=== PATIENT | female | born 1985 | race Caucasian/White ===

== ENCOUNTER 2025-06-18 13:40 | Outpatient (CLI) | payer MEDICAID, SELFPAY ==
[2025-06-18 13:54] VITALS: BP 110/81; PULSE 90; RESP 18; TEMP 36.7; O2SAT 99
[2025-06-18 14:21] VITALS: PULSE 75; O2SAT 100
--- NOTE | 2025-06-18 14:30 | PDOC.PAIN_ITS ---
Date of service: 06/18/25 Time of Service: 14:36 Pain Managment Procedure Note Procedure Note Procedure Note: Ultrasound guidedTrigger Point Injection ? Location: Bilateral thoracic parspinous ? Pre-procedure Diagnosis:? M79.10- Myalgia, unspecified site ? Post-procedure Diagnosis:? The same as above ? Sedation: none? Estimated blood loss: < 1 ml ? Surgeon:? Michele Cantrell MD ? Procedure Detail:?? The procedure and potential risks were explained to the patient and informed written consent was obtained. Time out was performed in procedure room with nursing staff confirming the patient's identity, procedure to be performed, allergies, and any blood thinning or anti-platelet medications. Sterile gloves were used, a face mask was worn, and new single dose vials of all medications were used with the top being swabbed with alcohol and given time to dry prior to withdrawal of medication.? Trigger points were palpated and confirmed to reproduce the patient?s pain symptoms.? Pre-injection ultrasound scanning of the area of interest was performed using Linear transducer, identifying relevant anatomy, landmarks, and neurovascular structures allowing for optimal needle path. The site was then prepared in the usual sterile fashion, using thorough Chlorhexadine preparation of the skin and sterile draping. The same ultrasound transducer was then passed into the sterile field using sterile probe cover and sterile ultrasound gel. Using high-frequency ultrasound probe with sterile cover target was identified.? ? A 25-gauge 1.5 inch needle was advanced to the target.? following negative aspiration a total of 8 ml from a mixture of 0.5% bupivacaine and 30 mg Depo- Medrol was injected.? Bilaterally at the thoracic paraspinous muscles- total of 6 sites? The patient tolerated the procedure well. Patient discharged home in stable condition. PAIN: PRE-PROCEDURE 02/12 POST-PROCEDURE Plan:? Follow up prn. 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 Coding Conscious Sedation used for procedure: No CPT Codes: TPI Single/Multi 1 or 2 Muscles *BILATERAL* - [id number] ([id number]~G5) 50 - BILATERAL PROCEDURE Ultrasound - 08905 ([id number] ~G) Additional Codes: Date of Service (94028) Date of service: 06/18/25 Diagnoses: M79.10- Myalgia, unspecified site
[2025-06-18] MEDS: Bupivacaine 0.5% Pres-Free 10 ML VIAL IJ (14:37)
[2025-06-18] MEDS: methylPREDNISolone ACETATE 40 MG/ML VIAL IJ (14:37)
[2025-06-18] MEDS: Nerve Block Tray 1 EACH MC (14:39)
== END 2025-06-18 13:41 | disposition home or self-care (01) ==
LOC: PC 13:40
PROVIDERS: PCP Physician Assistant; Visit Provider Anesthesiology Pain Medicine
DX: M79.18 Myalgia, other site (principal); M54.50 Low back pain, unspecified
CPT/HCPCS: 20552; 20553; J0665; J1010